=== PATIENT | female | born 1980 | race Caucasian/White ===

== ENCOUNTER 2017-01-17 22:43 | Emergency (ER) | payer OTHER ==
[~2017-01-17] VITALS: Ht 170.2 cm; Wt 87.0 kg
[2017-01-17 23:06] LABS: HCG UR LOT HCG7030192
[2017-01-17 23:18] LABS: HCG UR OBC PASS
[2017-01-18] MEDS ORDERED: ONDANSETRON 2MG/ML, 2ML IVPush ONE
[2017-01-18] MEDS ORDERED: KETOROLAC 30 MG/1 ML IVPush ONE
[2017-01-18] MEDS ORDERED: SODIUM CHLORIDE 0.9% 1,000ML IVBOLUS ONE
[2017-01-18] MEDS ORDERED: HYDROmorphone 1 MG/ML, 1ML IVPush PRN
[2017-01-18 00:09] LABS: HEMATOCRIT 37.7 % (34.6-47.8); HEMOGLOBIN 12.9 g/dL (11.7-16.4); WHITE BLOOD COUNT 9.3 x10^3/uL (3.4-10)
[2017-01-18 00:20] LABS: ASPARTATE AMINO TRANSFERASE 37 U/L (15-37); BLOOD UREA NITROGEN 8 mg/dL (7-18)
[2017-01-18] MEDS ORDERED: KETOROLAC 30 MG/1 ML ONE (00:20)
[2017-01-18] MEDS ORDERED: HYDROmorphone 1 MG/ML, 1ML ONE (00:20)
[2017-01-18] MEDS ORDERED: ONDANSETRON 2MG/ML, 2ML ONE (00:21)
[2017-01-18 00:25] LABS: IS PT STATUS REG ER OR PRE ER? YES
[2017-01-18] MEDS ORDERED: OMNIPAQUE 350 MG/ML, 100ML BOTTLE ONE (01:46)
[2017-01-18 01:52] VITALS: BP 127/83
[2017-01-18] MEDS ORDERED: CEFTRIAXONE PMX 1GM/50ML 50 ML ONE (01:59)
[2017-01-18] MEDS ORDERED: CEFTRIAXONE PMX 1GM/50ML 50 ML IV ONE (02:00)
== END 2017-01-18 02:58 | disposition home or self-care (01) ==
LOC: ED 23:59
DX: N10 Acute pyelonephritis (principal); M19.90 Unspecified osteoarthritis, unspecified site
CPT/HCPCS: 36415; 71275; 76770; 80053; 81001; 81025; 83690; 84484; 85025; 85379; 87086; 93005; 96361; 96365; 96366; 96375; 99285; J0696; J1170; J1885; J2405; J7030; Q9967